=== PATIENT | female | born 1950 | race Caucasian/White ===

== ENCOUNTER 2017-07-02 07:56 | Outpatient (CLI) | payer OTHER ==
[~2017-07-02 07:56] MED LIST: METFORMIN HCL500 MG; SYNTHROID100 MCG
== END 2017-07-02 07:59 | disposition home or self-care (01) ==
LOC: SONOGRAMA 07:56
DX: E04.2 Nontoxic multinodular goiter (principal)

== ENCOUNTER 2017-09-17 15:01 | Outpatient (CLI) | payer OTHER | END 2017-09-17 15:07 | disposition home or self-care (01) | LOC: RAD 15:01 | DX: M25.572 Pain in left ankle and joints of left foot (principal) ==